=== PATIENT | male | born 1960 | race Caucasian/White ===

== ENCOUNTER → 2017-02-02 | Outpatient (CLI) | payer BC ==
[2017-02-02 10:26] LABS: CH 30.7; CHCM 33.5; HCT 42.2 % (39.0-53.0); HDW 2.71; HGB 14.9 gm/dL (13.0-17.5); MCH 32.4 pg (25.0-35.0); MCHC 35.2 g/dL (31.0-37.0); Mean Platelet Volume 6.8; RBC 4.58 m/uL (4.30-5.90); RDW 12.8 % (11.5-15.5); WBC 8.8 k/uL (3.8-10.6)
[2017-02-02 10:40] LABS: Anion Gap 9 mmol/L; Blood Urea Nitrogen 14 mg/dL (9-20); Carbon Dioxide 28 mmol/L (22-30); Chloride 102 mmol/L (98-107); Non-African American GFR(MDRD) >60 (>60 ml/min/1.73 sqM); Potassium 4.6 mmol/L (3.5-5.1); Sodium 139 mmol/L (137-145)
== END | disposition home or self-care (01) ==
LOC: LABWHC1 09:42
PROVIDERS: ATTEND Internal Medicine Interventional Cardiology
DX: Z01.812 Encounter for preprocedural laboratory examination (principal); I20.9 Angina pectoris, unspecified
CPT/HCPCS: 36415; 80051; 82565; 84520; 85027

== ENCOUNTER 2017-02-12 06:21 | Day surgery (SDC) | payer BC ==
[2017-02-07 12:52] VITALS: BMI 41.5
[~2017-02-12 06:21] MED LIST: ALPRAZolam 0.25 MG TAB PO PRN; ASPIRIN 325 MG TAB PO STA; NITROGLYCERIN SL TABS 0.4 MG TAB SUBLINGUAL PRN; SODIUM CHLORIDE 0.9% 1,000 ML in EMPTY BAG 1 BAG IV ONE
[2017-02-12 06:46] VITALS: TEMP 98.9
[2017-02-12] MEDS ORDERED: SODIUM CHLORIDE 0.9% 1,000 ML IV ONE (06:47)
[2017-02-12] MEDS ORDERED: VERAPAMIL 2.5 MG/ML 2 ML AMP ONE (07:14)
[2017-02-12] MEDS ORDERED: MIDAZOLAM 2 MG/2 ML VIAL ONE (07:15)
[2017-02-12] MEDS ORDERED: diphenhydrAMINE 50 MG/ML 1 ML VIAL ONE (07:15)
[2017-02-12] MEDS ORDERED: HEPARIN SODIUM 1,000 UN/ML (10ML VL) ONE (07:15)
[2017-02-12] MEDS ORDERED: LIDOCAINE 2% INJ 20 MG/ML (20 ML MDV) ONE (07:15)
[2017-02-12] MEDS ORDERED: NITROGLYCERIN SL TABS 0.4 MG TAB SUBLINGUAL ONE ×2 (07:32→07:34)
[2017-02-12] MEDS ORDERED: diphenhydrAMINE 50 MG/ML 1 ML VIAL IVP ONE (07:33)
[2017-02-12] MEDS ORDERED: MIDAZOLAM 2 MG/2 ML VIAL IV ONE ×2 (07:34→07:35)
[2017-02-12] MEDS ORDERED: LIDOCAINE 2% INJ 20 MG/ML SQ ONE (07:36)
[2017-02-12] MEDS ORDERED: VERAPAMIL SYRINGE (5 MG/10 ML) INTRAARTER ONE ×2 (07:39→08:24)
[2017-02-12] MEDS ORDERED: HEPARIN SODIUM 1,000 UN/ML (10ML VL) IV ONE (07:41)
[2017-02-12] MEDS ORDERED: BIVALIRUDIN BOLUS 250 MG/50 ML IV ONE (08:03)
[2017-02-12] MEDS ORDERED: BIVALIRUDIN 250 MG in SODIUM CHLORIDE 0.9% 50 ML IV ONE (08:04)
[2017-02-12] MEDS: NITROGLYCERIN 1000MCG/10ML SYRINGE INTRACORON ONE ×2 (08:13→08:17)
[2017-02-12] MEDS ORDERED: IOHEXOL 350 MG/ML 100 ML BOTTLE INJ ONE (08:28)
[2017-02-12] MEDS ORDERED: TICAGRELOR 90 MG TAB PO ONE (08:29)
[2017-02-12] MEDS ORDERED: TICAGRELOR 90 MG TAB ONE (08:29)
[2017-02-12] MEDS ORDERED: MAG HYDROX/AL HYDROX/SIMETH 30 ML CUP PO PRN (08:37)
[2017-02-12] MEDS ORDERED: NITROGLYCERIN SL TABS 0.4 MG TAB SUBLINGUAL PRN (08:37)
[2017-02-12] MEDS ORDERED: RX INFO: IV CONTRAST WAS GIVEN 1 EACH MISC MISCELLANE PRN (08:37)
[2017-02-12] MEDS ORDERED: ZOLPIDEM 5 MG TAB PO PRN (08:37)
[2017-02-12] MEDS ORDERED: ATROPINE SULFATE 0.1 MG/ML 10ML SYRINGE IV PRN (08:37)
[2017-02-12] MEDS ORDERED: LOSARTAN 50 MG TAB PO SCH (09:00)
[2017-02-12] MEDS ORDERED: ASPIRIN 81 MG PO SCH ×2 (09:00)
[2017-02-12] MEDS ORDERED: METOPROLOL TARTRATE 12.5 MG TAB PO SCH ×2 (09:00→21:00)
--- NOTE | 2017-02-12 09:33 | CC ---
CARDIAC CATHETERIZATION REPORT DATE OF SERVICE: 02/12/2017. PROCEDURE: 1. Left heart catheterization and coronary angiography. 2. FFR of right coronary artery. 3. PTCA and stenting of proxima/mid RCA with a drug eluting stent. PERFORMED BY: Dr. Shana Campuzano. CLINICAL INFORMATION: Mr. Guru Wong is a 56-year-old gentleman with a history of hypertension and chest discomfort with a moderate proximal/mid RCA lesion based on a cardiac cath from about over a year ago. Because of symptoms strongly suggestive of angina, I recommended coronary angiography for this gentleman. His symptoms were strongly suggestive of angina. He has also family history of CAD and hypertension. PROCEDURE NOTE: Under local anesthesia and strict aseptic precautions, a 6-[place] introducer was placed in the right radial artery. I used initially an Ultimate 1 catheter and then a JL4 and perform selective coronary angiography of the left system. I used a JR 3.5 for right coronary artery and also checked LV pressures but did not perform LV gram. I noted that there was a moderate lesion eccentric in appearance and in some views significant involving the RCA at the junction of proximal and middle 1/3 and this was a very dominant vessel. I recommended FFR prior to intervention. CARDIAC CATHETERIZATION FINDINGS: RIGHT CORONARY ARTERY: This is a very dominant vessel. In the proximal portion, there is an eccentric area of irregularity at the junction of the proximal and middle one- third. The possibility of this being a significant lesion cannot be excluded in multiple views. Distally, it bifurcates into a large PDA and PLV, both of which supply a sizable amount of myocardium. The proximal/mid RCA therefore has a borderline lesion of about 50%, eccentric in nature. This is a dominant vessel with no other areas of disease and distal branches supply a fair amount of myocardium. LEFT MAIN CORONARY ARTERY: Long patent disease-free vessel that bifurcates into LAD and circumflex. LEFT ANTERIOR DESCENDING CORONARY ARTERY: Good caliber vessel, gives off 2 good-sized diagonal branches, several septal branches, runs all the way to the apex, supplies a sizable amount of myocardium. No significant disease in the LAD. LEFT POSTERIOR CIRCUMFLEX CORONARY ARTERY: This gives off a small obtuse marginal proximally. Continues distally as a large obtuse marginal that runs laterally. An AV groove branch is free of significant disease and left atrial branch also has minor irregularities. Circumflex nondominant, no significant disease. Left ventricular end-diastolic pressure was about 10 to 12 mmHg without any gradient across the aortic valve. LV gram was not performed. FRACTIONAL FLOW RESERVE ASSESSMENT OFF RCA. The patient was administered Angiomax bolus and infusion as per protocol. Using a JR4 guide catheter of 6-[place] caliber, I cannulated the right coronary artery. Using a [employer] wire, I performed an IFR. IFR was less than 0.60. I proceeded with intervention of this vessel. An 8 mm long 4.0 caliber drug-eluting Xience stent was deployed at 14 to 15 atmospheres. The patient had chest discomfort, but no new significant EKG changes. Excellent angiographic result was achieved without complication. The patient received Angiomax and bolus as per protocol. He received Brilinta 180 mg orally. I then performed a repeat IFR and this was completely normal, almost to 1.0. Results were discussed with the patient and family. Excellent angiographic result was achieved without complication. I expect that he will be discharged later this evening or early tomorrow. Discharge instructions regarding activity, diet, medications were given. Dual antiplatelet therapy was emphasized. Moderate conscious sedation was provided for a total duration of 54 minutes. MMODL / IJN: [id number] /
--- NOTE | 2017-02-12 09:39 | LTR ---
[address] eJnnings: Thank you for the opportunity to participate in the care of Mr. Wong. Please find enclosed my detailed cardiac cath report and PTCA report. He had a moderate lesion in the proximal/mid RCA eccentric in nature, significantly abnormal on IFR, which is a physiological way of assessing the severity of lesion. I performed intervention with great result. I expect him to be discharged later on today. Thank you for your referral and please call for questions. With kindest regards. Sincerely yours, MD LAILA Christianson / NEDN: [id number] /
[2017-02-12 15:55] VITALS: BP 132/73; PULSE 65; RESP 18
[2017-02-12] MEDS ORDERED: TICAGRELOR 90 MG TAB PO SCH (21:00)
[2017-02-12] MEDS ORDERED: ATORVASTATIN 80 MG TAB PO SCH (21:00)
[2017-02-13] MEDS ORDERED: ASPIRIN 81 MG PO SCH (09:00)
[2017-02-13] MEDS ORDERED: CHOLECALCIFEROL 1,000 UNIT TAB PO SCH (12:00)
== END 2017-02-12 17:53 | disposition home or self-care (01) ==
LOC: CATHCVL 06:21 → 6SEL 08:28 → CATHCVL 08:28
PROVIDERS: ATTEND Internal Medicine Interventional Cardiology
DX: I25.110 Atherosclerotic heart disease of native coronary artery with unstable angina pectoris (principal); I10 Essential (primary) hypertension; R00.2 Palpitations; E66.9 Obesity, unspecified; Z68.41 Body mass index [BMI] 40.0-44.9, adult; I47.1 Supraventricular tachycardia; Z79.82 Long term (current) use of aspirin; Z79.899 Other long term (current) drug therapy; Z88.0 Allergy status to penicillin; G47.33 Obstructive sleep apnea (adult) (pediatric); Z87.891 Personal history of nicotine dependence
CPT/HCPCS: 93571; 93458; 99152; 99153 ×3; C9600; C1887; C1874; C1894; J2001; J2250; J1200; Q9967; J1644; J0583

== ENCOUNTER → 2017-02-14 | Outpatient (CLI) | payer BC ==
[2017-02-14 07:53] LABS: CH 31.7; CHCM 33.9; HCT 44.3 % (39.0-53.0); HDW 2.53; HGB 14.7 gm/dL (13.0-17.5); MCH 31.2 pg (25.0-35.0); MCHC 33.2 g/dL (31.0-37.0); MCV 93.9 fL (80.0-100.0); Mean Platelet Volume 7.4; RBC 4.72 m/uL (4.30-5.90); RDW 13.8 % (11.5-15.5); WBC 8.7 k/uL (3.8-10.6)
[2017-02-14 08:10] LABS: Anion Gap 10 mmol/L; Blood Urea Nitrogen 11 mg/dL (9-20); Calcium 8.9 mg/dL (8.4-10.2); Carbon Dioxide 24 mmol/L (22-30); Chloride 104 mmol/L (98-107); Glucose 103 mg/dL (74-99); Non-African American GFR(MDRD) >60 (>60 ml/min/1.73 sqM); Potassium 4.1 mmol/L (3.5-5.1); Sodium 138 mmol/L (137-145)
== END | disposition home or self-care (01) ==
LOC: LABWHC1 07:15
PROVIDERS: ATTEND Internal Medicine Interventional Cardiology
DX: I25.10 Atherosclerotic heart disease of native coronary artery without angina pectoris (principal); I10 Essential (primary) hypertension
CPT/HCPCS: 36415; 80048; 85027